=== PATIENT | female | born 1970 | race Native Hawaiian/Other Pacific Islander ===

== ENCOUNTER 2018-04-24 13:18 | Emergency (ER) | payer OTHER ==
[2018-04-24 13:40] VITALS: BP 143/83; PULSE 64; RESP 18; TEMP 98.2; O2SAT 100
--- NOTE | 2018-04-24 13:49 | ED PDOC ---
Lower Extremity Pain/Injury Time Seen by Provider: 04/24/18 13:33 Chief Complaint (Nursing): Lower Extremity Problem/Injury Chief Complaint (Provider): Right foot and ankle pain History Per: Patient History/Exam Limitations: no limitations Onset/Duration Of Symptoms: Days (x2) Additional Complaint(s): Patient is a 47 y/o female who presents to the ED with pain to right foot and ankle s/p twisting injury this past Tuesday. Patient reports that she was chasing after her child while wearing high heels on an uneven patch of grass when she fell. Patient was instructed by her adobe block maker, Dr. Baugh to come to ED today. Patient has throbbing pain to affected area, aleve taken yesterday helped with pain somewhat. Patient able to walk and bear weight but has pain when doing so. PMD: Dr. Wynn - Ankle/Foot Description Of Injury: Fell Past Medical History Reviewed: Historical Data, Nursing Documentation, Vital Signs Vital Signs: Last Vital Signs Temp 98.2 F 04/24/18 13:37 Pulse 64 04/24/18 13:37 Resp 18 04/24/18 13:37 BP 143/83 04/24/18 13:37 Pulse Ox 100 04/24/18 13:37 - Medical History PMH: No Chronic Diseases - Surgical History Surgical History: Tonsillectomy, - Family History Family History: States: No Known Family Hx - Living Arrangements Living Arrangements: With Family - Social History Current smoker - smoking cessation education provided: No Alcohol: Social Drugs: Denies - Allergies Allergies/Adverse Reactions: Allergies Allergy/AdvReac Type Severity Reaction Status Date / Time No Known Allergies Allergy Verified 04/24/18 13:37 Review of Systems ROS Statement: Except As Marked, All Systems Reviewed And Found Negative Constitutional: Negative for: Fever, Chills Musculoskeletal: Positive for: Foot Pain (right foot and ankle) Physical Exam - Reviewed Nursing Documentation Reviewed: Yes Vital Signs Reviewed: Yes - Physical Exam Appears: Positive for: Well, Non-toxic, No Acute Distress Skin: Positive for: Normal Color. Negative for: Rash Extremity: Positive for: Swelling (mild swelling and tenderness to right foot and ankle region with no bony deformity noted, palpable distal pulse, normal distal sensation, no calf swellling or tenderness) Neurologic/Psych: Positive for: Alert, Oriented - ECG O2 Sat by Pulse Oximetry: 100 (RA) Pulse Ox Interpretation: Normal - Other Rad right foot and ankle x-ray X-Ray: Interpreted by Me, Viewed By Me X-Ray Interpretation: no fx, no dis, heel spur Medical Decision Making Medical Decision Making: Time: 13:58 Initial Impression: 47 y/o female with right ankle pain Initial Plan: --pain meds declined --X-Ray ordered ankle 3 views and foot 3 views 2:20 pm: Podiatry at bedside. Posterior splint applied to right foot and ankle region by resident. Patient was instructed to ice and elevate affected area. As per podiatry, Dr. Baugh will contact patient this week to arrange for follow up. Scribe Attestation: Documented by Alton Shaffer, acting as a scribe for Cynthia Grewal PA-C Provider Scribe Attestation: All medical record entries made by the Scribe were at my direction and personally dictated by me. I have reviewed the chart and agree that the record accurately reflects my personal performance of the history, physical exam, medical decision making, and the department course for this patient. I have also personally directed, reviewed, and agree with the discharge instructions and disposition. Disposition - Clinical Impression Clinical Impression: Right ankle sprain - Patient ED Disposition Is Patient to be Admitted: No Counseled Patient/Family Regarding: Studies Performed, Diagnosis, Need For Followup - Disposition Referrals: Duncan Baugh DPM [Staff Provider] - Disposition: Routine/Home Disposition Time: 14:50 Condition: STABLE Additional Instructions: Ice, rest and elevate affected area. Take over the counter advil or aleve for pain. Follow up as directed by Dr. Baugh. Instructions: Ankle Sprain (DC), How to Use Crutches, Going Up and Down Curbs or Stairs With a Walker or Crutches Forms: [employer] (Hebrew)
--- NOTE | 2018-04-24 14:22 | RAD ---
PROCEDURE: Right Ankle Radiographs. HISTORY: trauma COMPARISON: None FINDINGS: BONES: Questionable avulsion/chip fracture of the medial cuboid, best seen on the AP view. JOINTS: Ankle mortise maintained. Talar dome intact SOFT TISSUES: Normal. OTHER FINDINGS: None. IMPRESSION: Questionable avulsion/chip fracture of the medial aspect of the cuboid. ER notification submitted electronically.
--- NOTE | 2018-04-24 14:23 | RAD ---
PROCEDURE: Right Foot Radiographs. HISTORY: trauma COMPARISON: None. FINDINGS: BONES: No acute fracture. JOINTS: Normal. SOFT TISSUES: Normal. OTHER FINDINGS: Heel spur. IMPRESSION: No demonstrated fracture or dislocation.
--- NOTE | 2018-04-24 15:30 | CP.PCM.CON ---
History of Present Illness - History of Present Illness History of Present Illness: Podiatry ED Consult Note for Dr. Serra 47 yo female with no pertinent PMHx, presents to the ED with left ankle pain after twisting it Tuesday afternoon. She states that she was trying to catch her son and twisted her ankle on the grass while wearing high heels. She contacted Dr. Serra who referred her to the ED today. She rates her pain 6/ 10 to the dorsal aspect of her left foot and anterior aspect of her left ankle. She took alleve today for the pain. She denies any other pedal complaints at this time. Denies N/V/F/SOB/CP/C. PMHx: None PSHx: , Tonsillectomy All: NKDA Review of Systems - Review of Systems All systems: reviewed and no additional remarkable complaints except Review of Systems: as per HPI Past Patient History - Past Social History Alcohol: Social Drugs: Denies - SURGICAL HISTORY Hx Tonsillectomy: Yes Meds Allergies/Adverse Reactions: Allergies Allergy/AdvReac Type Severity Reaction Status Date / Time No Known Allergies Allergy Verified 04/24/18 13:37 Physical Exam - Constitutional Appears: Well, Non-toxic, No Acute Distress - Head Exam Head Exam: ATRAUMATIC, NORMOCEPHALIC - Extremities Exam Additional comments: Vascular: DP/PT 2/4 bilaterally. CFT < 3 seconds to all 10 digits. Temperature gradient warm to cool from proximal to distal. Mild edema noted anterior and inferior to left lateral malleolus. Ortho: Tenderness to palpation of ATFL, CFL, and to lateral aspect of left foot. Mild tenderness to palpation along left peroneal tendons. MMT 5/5 bilaterally. Neuro: Gross and protective sensation intact bilaterally. Derm: No open lesions, no erythema, no clinical signs of infection. - Neurological Exam Neurological exam: Alert, Oriented x3 - Psychiatric Exam Psychiatric exam: Normal Affect, Normal Mood Results - Vital Signs Recent Vital Signs: Last Vital Signs Temp 98.2 F 04/24/18 13:37 Pulse 64 04/24/18 13:37 Resp 18 04/24/18 13:37 BP 143/83 04/24/18 13:37 Pulse Ox 100 04/24/18 14:52 Assessment & Plan - Assessment and Plan (Free Text) Assessment: 47 yo female with no pertinent PMHx, presents to the ED with left lateral ankle sprain. Plan: Patient examined and evaluated with all questions and concerns addressed Discussed with Dr. Serra in detail X-rays reviewed- no evidence of osseous deformity or fracture noted to left foot or ankle Posterior splint applied to left lower extremity and instructed to leave it clean, dry, and intact. Dispensed crutches and instructed patient on use Instructed patient to ice behind her knee and elevate left lower extremity Instructed to continue taking Alleve for the pain PRN Dr. Serra will call to schedule follow up appointment in office Thank you for the consult. Mikayla Sun PGY1 - Date & Time Date: 04/24/18 Time: 15:44
== END 2018-04-24 16:56 | disposition home or self-care (01) ==
LOC: H.ER 13:18
DX: S93.401A Sprain of unspecified ligament of right ankle, initial encounter (principal); X50.9XXA Other and unspecified overexertion or strenuous movements or postures, initial encounter; Y92.89 Other specified places as the place of occurrence of the external cause